=== PATIENT | male | born 1970 | race Caucasian/White ===

== ENCOUNTER 2016-09-30 13:40 | Emergency (ER) | payer OTHER ==
[~2016-09-30] VITALS: Ht 180.3 cm; Wt 90.8 kg
[~2016-09-30 13:40] MED LIST: CENTRUM COMPLE1 EACH PO; LANTUS; LANTUS 10100 UNITS/ SC; LANTUS100 UNIT/1 SQ; LIPITOR20 MG PO; NOVOLOG; NOVOLOG100 UNIT/1 SQ; ZOCOR
[2016-09-30] MEDS ORDERED: FLEXERIL5 MG PO (15:32)
[2016-09-30] MEDS ORDERED: MOTRIN600 MG PO (15:32)
[2016-09-30 15:59] VITALS: BP 133/71
== END 2016-09-30 16:00 | disposition home or self-care (01) ==
LOC: EME 13:40
DX: M54.5 Low back pain (principal); E11.9 Type 2 diabetes mellitus without complications; Z79.4 Long term (current) use of insulin
CPT/HCPCS: 99281; 99283